=== PATIENT | female | born 1990 | race Caucasian/White ===

== ENCOUNTER 2021-09-21 11:15 | Emergency (ER) | payer OTHER ==
[2021-09-21] MEDS ORDERED: Ondansetron ODT 4 MG TAB ONE (11:40)
[2021-09-21 12:00] LABS: #Basophils 0.1 10x3/uL (0.0-0.2); #Eosinphils 0.1 10x3/uL (0.0-0.5); #Monocytes 0.7 10x3/uL (0.0-1.1); #Neutrophils 10.4 10x3/uL (1.5-8.4); %Basophils 0.4 % (0.0-2.0); %Eosinophils 0.7 % (0.0-6.0); %Lymphocytes 18.4 % (18.0-47.0); %Monocytes 4.9 % (0.0-10.0); %Neutrophils 75.2 % (40.0-75.0); Hemoglobin 13.8 g/dL (12.0-15.5); Mean Corpuscular HGB CONC 33.4 g/dL (32.0-36.0); Mean Corpuscular Hemoglobin 31.4 pg (27.0-33.0); Mean Corpuscular Volume 94.1 fl (81.6-98.3); Mean Platelet Volume 11.5 fl (7.4-10.4); Platelet Count 352 10x3/uL (150-450); RBC Distribution Width 13.6 % (11.5-14.5); Red Blood Cell (RBC) Count 4.39 10x6/uL (3.90-5.03); White Blood Cell (WBC) Count 13.8 10x3/uL (3.5-10.5)
[2021-09-21 12:09] LABS: ALT (SGPT) 15 U/L (8-55); AST (SGOT) 11 U/L (5-34); Albumin 4.7 g/dL (3.5-5.0); Alkaline Phosphatase 55 U/L (40-110); Anion Gap 13 mmol/L (10-20); BUN (Urea Nitrogen) 10 mg/dL (7.0-18.7); Bilirubin, Total 0.6 mg/dL (0.2-1.2); Calc. Creatinine Clearance 0 mL/min (70-130); Calcium 9.9 mg/dL (7.8-10.44); Carbon Dioxide 27 mmol/L (22-29); Chloride 106 mmol/L (98-107); Globulin 2.8 g/dL (2.4-3.5); Glucose 108 mg/dL (70-105); Potassium 3.9 mmol/L (3.5-5.1); Protein, Total 7.5 g/dL (6.0-8.3); Sodium 142 mmol/L (136-145)
[2021-09-21 15:06] LABS: Bilirubin Neg (Negative); Blood, Urine 10 (Negative); Clarity Cloudy (Clear); Glucose, Urine (Dipstick) Normal (Negative); Ketone, Urine 15 mg/dL (Negative); Leukocyte 100 (Negative); Nitrite Negative (Negative); Protein, Urine (Dipstick) 30 mg/dl (Neg-Trace)
[2021-09-21 15:08] LABS: Pregnancy Test - Urine (BHCG) POSITIVE (Negative); Pregu Control Background? CLEAR/WHITE (CLR/WHITE); Pregu Control Bar Appear? YES (CONTROL BAR)
[2021-09-21 15:27] LABS: Bacteria/HPF 3+ HPF (None Seen); Mucous/LPF 3+ LPF (<2+); Sperm/HPF 1+ HPF (None Seen); Squamous Epithelial Greater than 50 HPF (0-3)
== END 2021-09-21 16:50 | disposition home or self-care (01) ==
LOC: CSHERS 11:15
DX: R10.13 Epigastric pain (principal); Z33.1 Pregnant state, incidental; R11.2 Nausea with vomiting, unspecified; R51.9 Headache, unspecified
CPT/HCPCS: 36415; 80053; 81003; 81015; 81025; 83690; 85025; 94760; Q0162

== ENCOUNTER 2021-11-29 10:31 | Emergency (ER) | payer OTHER ==
[2021-11-29] MEDS ORDERED: Ondansetron PF 4 MG/2 ML Vial ONE (11:53)
[2021-11-29 12:07] LABS: #Monocytes 0.4 10x3/uL (0.0-1.1); #Neutrophils 4.7 10x3/uL (1.5-8.4); %Basophils 0.1 % (0.0-2.0); %Eosinophils 0.6 % (0.0-6.0); %Lymphocytes 25.5 % (18.0-47.0); %Monocytes 5.5 % (0.0-10.0); %Neutrophils 67.7 % (40.0-75.0); Hemoglobin 13.7 g/dL (12.0-15.5); Mean Corpuscular HGB CONC 33.7 g/dL (32.0-36.0); Mean Corpuscular Hemoglobin 32.4 pg (27.0-33.0); Mean Corpuscular Volume 96.2 fl (81.6-98.3); Mean Platelet Volume 12.3 fl (7.4-10.4); Platelet Count 203 10x3/uL (150-450); RBC Distribution Width 13.5 % (11.5-14.5); Red Blood Cell (RBC) Count 4.23 10x6/uL (3.90-5.03); White Blood Cell (WBC) Count 6.9 10x3/uL (3.5-10.5)
[2021-11-29] MEDS ORDERED: Acetaminophen 500 MG TAB ONE (12:07)
[2021-11-29 12:19] LABS: ALT (SGPT) 18 U/L (8-55); AST (SGOT) 14 U/L (5-34); Albumin 3.9 g/dL (3.5-5.0); Alkaline Phosphatase 45 U/L (40-110); Anion Gap 13 mmol/L (10-20); BUN (Urea Nitrogen) 7 mg/dL (7.0-18.7); Bilirubin, Total 0.2 mg/dL (0.2-1.2); Calc. Creatinine Clearance 0 mL/min (70-130); Calcium 8.9 mg/dL (7.8-10.44); Carbon Dioxide 22 mmol/L (22-29); Chloride 107 mmol/L (98-107); Globulin 2.9 g/dL (2.4-3.5); Glucose 99 mg/dL (70-105); Lipase 31 U/L (8-78); Protein, Total 6.8 g/dL (6.0-8.3); Sodium 138 mmol/L (136-145)
== END 2021-11-29 13:08 | disposition home or self-care (01) ==
LOC: CSHERS 10:31
DX: R10.13 Epigastric pain (principal); Z79.899 Other long term (current) drug therapy
CPT/HCPCS: 71045; 76705; 80053; 83690; 85025; 96374; J2405

== ENCOUNTER 2022-05-27 08:29 | Inpatient (IN) | payer OTHER ==
[2022-05-27] MEDS ORDERED: NS w/ Oxytocin 30 units 500 ML ONE ×2 (09:06→09:40)
[2022-05-27] MEDS ORDERED: HYDROcodone/Acetaminophen 5/325 mg Tablet PO PRN ×2 (09:39)
[2022-05-27] MEDS ORDERED: Promethazine HCl 25 MG/ML VIAL IM PRN ×2 (09:39→11:04)
[2022-05-27] MEDS ORDERED: Ibuprofen 800 MG TAB PO PRN (09:39)
[2022-05-27] MEDS ORDERED: Butorphanol Tartrate 1 MG/ML VIAL SLOW IVP PRN (09:39)
[2022-05-27] MEDS ORDERED: Ondansetron PF 4 MG/2 ML Vial IVP PRN ×2 (09:39→11:04)
[2022-05-27] MEDS ORDERED: hydrALAZINE 20 MG/ML VIAL SLOW IVP PRN ×2 (09:39→11:04)
[2022-05-27] MEDS ORDERED: Lidocaine 1% (PF) 30 ML VIAL SC PRN (09:39)
[2022-05-27 09:42] VITALS: BMI 32.5
[2022-05-27] MEDS ORDERED: NS w/ Oxytocin 30 units 500 ML IV SCH ×2 (09:45→11:04)
[2022-05-27 10:23] LABS: Hemoglobin 10.8 g/dL (12.0-15.5); Mean Corpuscular HGB CONC 33.4 g/dL (32.0-36.0); Mean Corpuscular Hemoglobin 29.6 pg (27.0-33.0); Mean Corpuscular Volume 88.5 fl (81.6-98.3); Mean Platelet Volume 13.5 fl (7.4-10.4); Platelet Count 272 10x3/uL (150-450); RBC Distribution Width 14.6 % (11.5-14.5); Red Blood Cell (RBC) Count 3.65 10x6/uL (3.90-5.03); White Blood Cell (WBC) Count 11.1 10x3/uL (3.5-10.5)
[2022-05-27 10:48] LABS: Hep B Surf Ag Non-Reactive S/CO (NonReactive); Syphilis Antibody Nonreactive (Nonreactive); Syphilis Antibody Index 0.04 S/CO (<1.00 Non-Reactive)
[2022-05-27] MEDS ORDERED: Preparation H Ointment 28 GM TUBE PR PRN (11:04)
[2022-05-27] MEDS ORDERED: Benzocaine-Menthol 82.5 ML CAN TOP PRN (11:04)
[2022-05-27] MEDS ORDERED: Zolpidem Tartrate 5 MG TAB PO PRN (11:04)
[2022-05-27] MEDS ORDERED: Lanolin Ointment 7 GM TUBE TOP PRN (11:04)
[2022-05-27] MEDS ORDERED: diphenhydrAMINE 25 MG CAP PO PRN (11:04)
[2022-05-27] MEDS ORDERED: Boostrix 0.5 ML (Tdap) VIAL IM ONE (11:04)
[2022-05-27] MEDS ORDERED: Bisacodyl 10 MG SUPP PR PRN (11:04)
[2022-05-27] MEDS ORDERED: Milk Of Magnesia 30 ML UDCUP PO PRN (11:04)
[2022-05-27 11:06] LABS: HBSAg Index 0.17 S/CO (0-0.99)
[2022-05-27] MEDS: Ibuprofen 800 MG TAB PO SCH ×2 (11:20→21:51)
[2022-05-27 11:56] LABS: SARS-CoV-2 NAA Rapid Test Not Detected (NotDetected)
[2022-05-27] MEDS: Ferrous Sulfate 325 MG TAB PO SCH (17:11)
[2022-05-27] MEDS: Docusate 100 MG CAP PO SCH (21:50)
[2022-05-28 01:37] LABS: HIV (1/2) Antibody/Antigen Non-Reactive (NonReactive); HIV 1/2 INDEX 0.07 S/CO (<1.00)
[2022-05-28] MEDS: Ibuprofen 800 MG TAB PO SCH ×3 (05:20→21:06)
[2022-05-28] MEDS: Docusate 100 MG CAP PO SCH ×2 (09:26→21:07)
[2022-05-28] MEDS: Ferrous Sulfate 325 MG TAB PO SCH ×2 (09:26→16:17)
[2022-05-29] MEDS: Ibuprofen 800 MG TAB PO SCH (05:14)
[2022-05-29] MEDS: Ferrous Sulfate 325 MG TAB PO SCH (08:11)
[2022-05-29] MEDS: Docusate 100 MG CAP PO SCH (08:52)
[2022-05-29 10:24] VITALS: BP 124/81; TEMP 98.3
[2022-05-30 15:36] LABS: HIV-1 Quantitative, RNA PCR <20 copies/mL (.)
== END 2022-05-29 12:40 | disposition home or self-care (01) | DRG 776 ==
LOC: CSHLD 08:29 → CSHPP 10:35
PROVIDERS: ADMIT Obstetrics & Gynecology; ATTEND Obstetrics & Gynecology
DX: O90.81 Anemia of the puerperium (principal); Z20.822 Contact with and (suspected) exposure to COVID-19; Z88.5 Allergy status to narcotic agent; Z79.82 Long term (current) use of aspirin; D64.9 Anemia, unspecified
CPT/HCPCS: 36415; 85027; 86780; 86850; 86900; 86901; 87340; 87389; 87536; U0002